=== PATIENT | female | born 1990 | race Caucasian/White ===

== ENCOUNTER 2021-04-28 13:42 | Outpatient (CLI) | payer OTHER | END 2021-04-28 13:43 | disposition home or self-care (01) | LOC: BICULT 13:42 | PROVIDERS: ATTEND Family Medicine | DX: Z34.82 Encounter for supervision of other normal pregnancy, second trimester (principal); Z3A.22 22 weeks gestation of pregnancy | CPT/HCPCS: 76805 ==

== ENCOUNTER 2023-01-03 15:28 | Outpatient (CLI) | payer OTHER | END 2023-01-03 15:29 | disposition home or self-care (01) | LOC: BICULT 15:28 | PROVIDERS: ATTEND Family Medicine | DX: O09.892 Supervision of other high risk pregnancies, second trimester (principal); Z3A.20 20 weeks gestation of pregnancy | CPT/HCPCS: 76805 ==